=== PATIENT | male | born 1970 | race Two or more races ===

== ENCOUNTER 2020-05-09 13:46 | Emergency (ER) | payer SELFPAY ==
[~2020-05-09] VITALS: Ht 172.7 cm; Wt 68.0 kg
[2020-05-09 14:05] VITALS: BP 183/134
[2020-05-09] MEDS ORDERED: cloNIDine HCL 0.1 MG TAB ONE (14:05)
[2020-05-09] MEDS ORDERED: cloNIDine HCL 0.1 MG TAB PO ONE (14:15)
== END 2020-05-09 16:28 | disposition home or self-care (01) ==
LOC: ER 13:46
DX: I16.0 Hypertensive urgency (principal)